=== PATIENT | female | born 1960 | race Caucasian/White ===

== ENCOUNTER → 2019-06-19 | Outpatient (CLI) | payer OTHER ==
--- NOTE | 2019-06-20 08:40 | PCVCIMAG ---
APPROVED REPORT Study performed: 06/19/2019 16:10:31 EXAM: Comprehensive 2D, Doppler, and color-flow Echocardiogram Patient Location: Echo lab Room #: 3Status: routine BSA: 2.10 HR: 66 bpmBP: 124/70 mmHg Rhythm: NSR Other Information Study Quality: Adequate Risk Factors: Cardiac Risk Factors: HTN, Hyperlipidemia Indications Palpitations Hypertension/HDD Renal Disease 2D Dimensions IVSd: 11.24 (7-11mm)LVOT Diam: 17.00 (18-24mm) LVDd: 39.08 mm PWd: 11.18 (7-11mm)Ascending Ao: 27.52 (22-36mm) LVDs: 27.15 (25-40mm) Left Atrium: 36.22 (27-40mm) Aortic Root: 23.94 mm LV Single Plane 4CH: 63.09 % LV Single Plane 2CH: 54.55 % Biplane EF: 59.3 % Volumes Left Atrial Volume (Systole) Single Plane 4CH: 38.24 mLSingle Plane 2CH: 43.40 mL LA ESV Index: 21.00 mL/m2 Aortic Valve AoV Peak Nazario.: 1.67 m/s AO Peak Gr.: 11.14 mmHgLVOT Max P.82 mmHg LVOT Max V: 1.10 m/s JESUS Vmax: 1.47 cm2 Mitral Valve E/A Ratio: 1.1 MV Decel. Time: 290.58 ms MV E Max Nazario.: 1.37 m/s MV A Nazario.: 1.28 m/s IVRT: 65.74 ms TDI E/Lateral E': 19.57E/Medial E': 15.22 Medial E' Nazario.: 0.09 m/s Lateral E' Nazario.: 0.07 m/s Pulmonary Valve PV Peak Nazario.: 1.03 m/sPV Peak Gr.: 4.27 mmHg Pulmonary Vein P Vein S: 0.66 m/sP Vein A: 0.26 m/s P Vein D: 0.43 m/sP Vein A Dur.: 110.7 msec P Vein S/D Ratio: 1.53 Left Ventricle The left ventricle is normal size. There is normal LV segmental wall motion. Borderline concentric left ventricular hypertrophy. Left ventricular systolic function is normal. The left ventricular ejection fraction is within the normal range. LVEF is 60-65%. The left ventricular diastolic function is normal. Right Ventricle The right ventricle is normal size. The right ventricular systolic function is normal. Atria The left atrium size is normal. The right atrium size is normal. Aortic Valve The aortic valve is normal in structure. No aortic regurgitation is present. There is no aortic valvular stenosis. Mitral Valve Mild mitral annular calcification There is no mitral valve regurgitation noted. No evidence of mitral valve stenosis. Tricuspid Valve The tricuspid valve is normal in structure. There is no tricuspid valve regurgitation noted. Pulmonic Valve The pulmonary valve is normal in structure. There is no pulmonic valvular regurgitation. Great Vessels The aortic root is normal in size. The ascending aorta is normal in size. IVC is normal in size and collapses >50% with inspiration. Pericardium There is no pericardial effusion. <Conclusion> Left ventricular systolic function is normal. There is normal LV segmental wall motion. LVEF is 60-65%. Normal diastolic function The aortic valve is normal in structure. No aortic regurgitation or stenosis Mild mitral annular calcification. No mitral valve regurgitation. Pulmonary artery systolic pressure could not be reliably ascertained There is no pericardial effusion.
== END | disposition home or self-care (01) ==
LOC: PCVCIMAG 16:07
PROVIDERS: ATTEND Internal Medicine
DX: I10 Essential (primary) hypertension (principal); R00.2 Palpitations
CPT/HCPCS: 93306